=== PATIENT | male | born 1950 | race Caucasian/White ===

== ENCOUNTER → 2024-11-06 | Outpatient (CLI) | payer MEDICARE, SELFPAY ==
[2024-11-06 17:20] LABS: Prostate Specific Antigen < 0.10 ng/mL (0-4.00)
== END | disposition home or self-care (01) ==
PROVIDERS: PCP Urology; Referring Provider Urology; Visit Provider Urology
DX: C61 Malignant neoplasm of prostate (principal)
CPT/HCPCS: 36415; 84153

== ENCOUNTER → 2024-11-11 | Outpatient (BNVA) | payer MEDICARE, SELFPAY | END | disposition home or self-care (01) | PROVIDERS: Visit Provider Urology | DX: C61 Malignant neoplasm of prostate (principal); N52.9 Male erectile dysfunction, unspecified | CPT/HCPCS: 81003; 99212; G0463 ==

== ENCOUNTER → 2025-07-15 | Outpatient (CLI) | payer MEDICARE, SELFPAY ==
[2025-07-15 16:48] LABS: Prostate Specific Antigen < 0.10 ng/mL (0-4.00)
== END | disposition home or self-care (01) ==
LOC: COPL 15:17
PROVIDERS: Referring Provider Urology; Visit Provider Urology
DX: C61 Malignant neoplasm of prostate (principal)
CPT/HCPCS: 36415; 84153

== ENCOUNTER → 2025-07-20 | Outpatient (BNVA) | payer MEDICARE, SELFPAY | END | disposition home or self-care (01) | PROVIDERS: Visit Provider Physician Assistant | DX: C61 Malignant neoplasm of prostate (principal) | CPT/HCPCS: Q3014 ==